=== PATIENT | female | born 1970 | race Caucasian/White ===

== ENCOUNTER 2017-02-06 21:18 | Emergency (ER) | payer MEDICARE ==
--- NOTE | ~2017-02-06 | CT2 ---
[facility] A Service of [facility] RADIOLOGY TEXT RESULTS PATIENT: LAWRENCE SUÁREZ LOCATION: SED : 70 UNIT #: [id number] AGE: [address]: Ramu Rodrigues MD SEX: F ORDER DR: [id number] [place] [id number] E MR#: [id number] Acc #: [id number] NAME: LAWRENCE SUÁREZ : 1970 SEX: F STUDY DATE/TIME: 02/06/2017 23:02 UNIT: SED ROOM: STUDY DESCRIPTION: CT Abd and Pelv W Cont Attending Physician: Ramu Rodrigues M.D. Ordering Physician: Ramu Rodrigues M.D. Primary Care Physician: Matt Bronson Aprn MEDICAL IMAGING REPORT This report is preliminary unless electronic signature is present. EXAM CT abdomen and pelvis INDICATIONS Rectal pain and bleeding. 3-day duration. TECHNIQUE CT of the abdomen and pelvis with IV contrast. Coronal and sagittal reconstructions were obtained. This CT exam was performed with one or more of the following radiation dose reduction techniques: automatic exposure control, adjustment of mA and/or kV according to patient size, and iterative reconstruction. COMPARISON CT abdomen and pelvis dated 07/28/2015. FINDINGS There is diffuse wall thickening involving the colon from the cecum to the rectum. There is some mild pericolonic inflammation, however no evidence of abscess or perforation. This is consistent with a colitis. There is a 1.1 cm cystic mass in the pancreatic head. This previously measured 1.4 cm. This likely represents a pancreatic pseudocyst. No acute pancreatic inflammation. Gallbladder surgically absent. Small bowel is not dilated. There is a small periumbilical hernia without complicating features. The abdominal aorta is normal in caliber. PELVIS: The uterus and ovaries are within normal limits. Bladder is unremarkable. No enlarged pelvic or inguinal lymph nodes. [facility] A Service of [facility] RADIOLOGY TEXT RESULTS PATIENT: LAWRENCE SUÁREZ LOCATION: SED : 70 UNIT #: [id number] AGE: [address]: Ramu Rodrigues MD SEX: F ORDER DR: No acute osseous abnormalities. IMPRESSION 1. Diffuse wall thickening throughout the colon indicative of a colitis. 2. No abscess or perforation. 3. Small periumbilical abdominal wall hernia. Dictated by... Lowell Aquino M.D. THIS IS AN ELECTRONICALLY VERIFIED REPORT Lowell Aquino M.D. at 02/07/2017 12:49 AM BITA/[place] TD: 02/06/2017 23:50 JOB #: [id number] MEDICAL IMAGING REPORT Page 1 of 1
[~2017-02-06 21:18] MED LIST: ALBUTEROL17 GM; HYDROCODON-ACE1 EAC9 PO
[2017-02-06] MEDS ORDERED: PRILOSEC PO (21:30)
[2017-02-06] MEDS ORDERED: MULTIVITAMINS1 EAC3 (21:31)
[2017-02-06 22:21] LABS: URINE SOURCE CLEAN CATCH
[2017-02-06 22:22] LABS: BASOPHIL% 0.4 % (0-2.5); EOSINOPHIL% 0.3 % (0.0-7.0); HEMATOCRIT 45.3 % (35.0-45.0); HEMOGLOBIN 15.7 gm/dL (12.0-16.0); LYMPHOCYTE% 9.6 % (17.0-45.0); MEAN CORPUSCULAR HEMOGLOBIN 32.9 PG (28-34); MEAN CORPUSCULAR HGB CONC 34.6 g/dL (30-36); MEAN PLATELET VOLUME 8.4 FL (6.5-11.5); MONOCYTE# 0.4 X10e3 (0-1.0); MONOCYTE% 3.3 % (3.0-12.0); NEUTROPHIL# 9.4 X10e3 (1.5-7.1); NEUTROPHIL% 86.4 % (40-75); PLATELET COUNT 145 X10e3 (140-420); RED BLOOD COUNT 4.77 X10e (3.90-5.30); RED CELL DISTRIBUTION WIDTH 13.1 % (11.0-15.5); WHITE BLOOD COUNT 10.8 X10e3 (4.0-10.5)
[2017-02-06 22:23] LABS: DIFF IND NO; URINE APPEARANCE CLEAR; URINE BILIRUBIN NEG (NEG); URINE BLOOD 1+ (NEG); URINE COLOR YELLOW; URINE GLUCOSE NEG (NORM); URINE LEUKOCYTE ESTERASE NEG (NEG); URINE NITRATE NEG (NEG); URINE PROTEIN TRACE (NEG); URINE SPECIFIC GRAVITY 1.015 (1.003-1.035); URINE UROBILINOGEN 0.2 MG/DL (NORM)
[2017-02-06 22:29] LABS: MICRO INDICATED? YES; URINE KETONE 3+ (NEG)
[2017-02-06 22:30] LABS: CULTURE INDICATED? NO; URINE BACTERIA NEG (NEG); URINE SQUAMOUS EPITHELIAL CELL MODERATE /[HPF]
[2017-02-06 22:46] LABS: ALBUMIN SERUM 4.3 g/dL (3.5-5.0); ALKALINE PHOSPHATASE 61 U/L (32-92); ALT (SGPT) 27 U/L (10-40); AST (SGOT) 25 U/L (10-42); BILIRUBIN, DIRECT <0.1 mg/dL (0.0-0.2); BILIRUBIN,INDIRECT 0.3 mg/dL (0.0-0.9); BILIRUBIN,TOTAL 0.4 mg/dL (0.2-2.0); BLOOD UREA NITROGEN 12 mg/dL (9-23); BUN/CREATININE RATIO 17.14; CALCIUM SERUM 9.1 mg/dL (8.4-10.2); CARBON DIOXIDE 25 mmol/L (22-31); CHLORIDE 103 mmol/L (100-111); CREATININE SERUM 0.7 mg/dL (0.6-1.4); GLOM FILT RATE Estimated 103.9 mL/min (>60); GLUCOSE FASTING 95 mg/dL (70-110); LIPASE 21 U/L (22-51); POTASSIUM 3.9 mmol/L (3.5-5.1); PROTEIN TOTAL SERUM 7.4 g/dL (6.0-8.3); SODIUM 136 mmol/L (135-145)
== END 2017-02-07 02:15 | disposition home or self-care (01) ==
LOC: SED 21:18
PROVIDERS: Emergency Medicine
DX: K52.9 Noninfective gastroenteritis and colitis, unspecified (principal); E86.0 Dehydration; R11.2 Nausea with vomiting, unspecified
CPT/HCPCS: 36415; 74177; 80048; 80076; 81003; 83690; 85025; 96361; 96374; 96375; 99284; C9113; J1170; J2405; J2550; Q9967

== ENCOUNTER 2017-04-06 19:47 | Emergency (ER) | payer MEDICARE ==
[~2017-04-06] VITALS: Ht 160 cm; Wt 83.9 kg
--- NOTE | ~2017-04-06 | CR133 ---
[facility] A Service of [facility] & [facility] RADIOLOGY TEXT RESULTS PATIENT: LAWRENCE SUÁREZ LOCATION: SED : 70 UNIT #: [id number] AGE: [address]: Kary Mcknight SEX: F ORDER DR: [id number] [address] [address] [id number] E MR#: [id number] Acc #: [id number] NAME: LAWRENCE SUÁREZ : 1970 SEX: F STUDY DATE/TIME: 04/06/2017 20:12 UNIT: SED ROOM: STUDY DESCRIPTION: CR Forearm 2 View Rt Attending Physician: Kary Mcknight Pa-C Ordering Physician: Kary Mcknight Pa-C Primary Care Physician: Matt Bronson Aprn MEDICAL IMAGING REPORT This report is preliminary unless electronic signature is present. EXAM Right forearm series dated 04/06/2017. COMPARISON None. HISTORY Trauma today with proximal and distal right forearm pain. FINDINGS 2 views of the right forearm were obtained. AP and lateral views of the forearm show no evidence of fracture or destructive bone lesion. No periosteal elevation is seen. No radiodense foreign bodies are noted. Adjacent soft tissue structures are normal. IMPRESSION Normal right forearm. Dictated by... Jimmy Zavaleta M.D. THIS IS AN ELECTRONICALLY VERIFIED REPORT Jimmy Zavaleta M.D. at 04/07/2017 7:34 PM CPR/caridad TD: 04/07/2017 09:02 JOB #: [id number] MEDICAL IMAGING REPORT Page 1 of 1
[~2017-04-06 19:47] MED LIST changes: +MULTIVITAMINS1 EAC3; +PRILOSEC PO
== END 2017-04-06 20:59 | disposition home or self-care (01) ==
LOC: SED 19:47
DX: S50.11XA Contusion of right forearm, initial encounter (principal); F17.210 Nicotine dependence, cigarettes, uncomplicated; W22.8XXA Striking against or struck by other objects, initial encounter; Y92.009 Unspecified place in unspecified non-institutional (private) residence as the place of occurrence of the external cause
CPT/HCPCS: 73090; 99283